=== PATIENT | female | born 1995 | race Caucasian/White ===

== ENCOUNTER 2018-06-06 20:22 | Emergency (ER) | payer SELFPAY ==
[2018-06-06 20:28] VITALS: BP 124/79; PULSE 89; RESP 18; TEMP 36.6; O2SAT 100
--- NOTE | 2018-06-06 21:04 | ED.SKABFB ---
HPI - Skin/Abscess/Foreign Bdy General Chief complaint: Skin/Abscess/Foreign Body Stated complaint: DOG BITE TO LEFT INDEX FINGER Time Seen by Provider: 06/06/18 20:35 Source: patient Mode of arrival: ambulatory Limitations: no limitations History of Present Illness HPI narrative: Patient is a 23-year-old female who presents with dog bite to her left index finger. She did dog bite 1 week ago. She has not had significant redness swelling or pus no decreased range in motion. She got concerned because she is not sure that her tetanus is up-to-date. She felt some pain in her jaw thought she might have tetanus. She no longer has pain in her jaw. complaint: lesion Onset (ago): week(s) (1) Severity: mild Related Data Allergies Allergy/AdvReac Type Severity Reaction Status Date / Time codeine Allergy Verified 06/06/18 20:28 neomycin Allergy Verified 06/06/18 20:41 diphenhydramine AdvReac Hallucinati Verified 06/06/18 20:28 [From Benadryl] ng Review of Systems Review of Systems GENERAL: Denies chills,fever HEENT: Denies throat pain RESPIRATORY: Denies dyspnea, cough, wheezing CARDIOVASCULAR: Denies chest pain, palpitations GASTROINTESTINAL: Denies nausea, vomiting MUSCULOSKELETAL: Denies extremity pain, injury SKIN: See HPI NEUROLOGIC: Denies weakness, dizziness, headache, numbness 8 point review of systems is negative except for those stated above and HPI [facility] Medical History Patient denies significant medical history (Acute) Social History Smoking Status: Never smoker Social History Smoking Status: Never smoker Exam Initial Vital Signs Initial Vital Signs: Vital Signs Temperature 97.8 F 06/06/18 20:28 Pulse Rate 89 06/06/18 20:28 Respiratory Rate 18 06/06/18 20:28 Blood Pressure 124/79 06/06/18 20:28 Pulse Oximetry 100 06/06/18 20:28 GENERAL: Well-appearing, well-nourished and in no acute distress. CARDIOVASCULAR: peripheral pulses in tact, cap refill <2 sec RESPIRATORY: No respiratory distress, speaks in full sentences without difficulty EXTREMITIES: Normal range of motion, no clubbing or edema. Neurovascularly intact. \ full range of motion at left index DIP and PIP NEUROLOGICAL: Cranial nerves II through XII grossly intact. Normal gait and speech. SKIN: Left index finger small puncture wound noted distally. It is scabbed over no fluctuation no redness shows no swelling or pain. Seems to be healing. Course Vital Signs - 8 hr 06/06/18 20:28 06/06/18 21:08 Temperature 97.8 F 98.1 F Pulse Rate 89 82 Respiratory Rate 18 18 Blood Pressure 124/79 120/75 Pulse Oximetry 100 100 MDM - Skin/Abscess/Foreign Bdy MDM Narrative Medical decision making narrative: At this time I do not believe patient's finger to be infected from dog bite. Was offered a tetanus shot in the emergency department however she said she would rather get it from the pharmacy. Discharge Plan Departure Patient Disposition: Home Clinical Impression: Dog bite Qualifiers: Encounter type: initial encounter Qualified Code(s): W54.0XXA - Bitten by dog, initial encounter Discharge Date/Time: 06/06/18 21:05 Interventions: ED Discharge Assessment Last Done: 06/06/18 21:08 Instructions: DI for Dog Bite Activity Restrictions/Additional Instructions: *You have been diagnosed with Dog bite *What to do: at this point dog bite does not appear infected on my would not start antibiotics at this time. Keep finger clean and dry apply Neosporin twice daily to help with healing GO TO PHARMACY TO GET TETANUS SHOT *Continue to take medications as directed *Follow up with your primary care provider in 2-3 days *Return to ER if you should have PERSISTENT WORSENING REDNESS FINGER INABILITY TO BEND OR STRAIGHTEN FINGER, FEVER OR any new, worsening or concerning symptoms
[2018-06-06 21:08] VITALS: BP 120/75; PULSE 82; RESP 18; TEMP 36.7; O2SAT 100
== END 2018-06-06 21:05 | disposition home or self-care (01) ==
LOC: ED 21:12
PROVIDERS: Emergency Provider Emergency Medicine
DX: S61.251A Open bite of left index finger without damage to nail, initial encounter (principal); W54.0XXA Bitten by dog, initial encounter
CPT/HCPCS: 99283

== ENCOUNTER 2018-06-22 15:51 | Emergency (ER) | payer SELFPAY ==
[2018-06-22 15:59] VITALS: BP 129/82; PULSE 104; RESP 14; TEMP 36.1; O2SAT 100; BMI 19.8
--- NOTE | 2018-06-22 16:08 | ED.NAVMDI ---
HPI - Nausea/Vomiting/Diarrhea <GUANACO Mallory - Last Filed: 06/22/18 21:51> General Chief complaint: Nausea/Vomiting/Diarrhea Stated complaint: nausea, possibly from drinking alcohol Time Seen by Provider: 06/22/18 16:08 Source: patient Mode of arrival: ambulatory Limitations: no limitations History of Present Illness HPI Narrative: Healthy 23-year-old female that is a nonsmoker here for complaint of having nausea over the past several weeks. She also reports having a symptoms of reflux such as occasional burning to her esophagus. She denies any abdominal pain at this time. She denies any urinary symptoms. No active vomiting. She does state that she has had some increased stress over the past month. She has decreased p.o. intake all though she is tolerating fluids. Last bowel movement was earlier today and was unremarkable. She denies any vaginal discharge or bleeding. She denies any dark stools or hematemesis. She denies any stressors or relievers of her symptoms. MD complaint: nausea Related Data Previous Rx's Medication Instructions Recorded ondansetron 4 mg PO BID-TID PRN #10 tab 06/22/18 Allergies Allergy/AdvReac Type Severity Reaction Status Date / Time codeine Allergy Verified 06/22/18 15:59 neomycin Allergy Verified 06/22/18 15:59 diphenhydramine AdvReac Hallucinati Verified 06/22/18 15:59 [From Benadryl] ng Review of Systems <GUANACO Mallory - Last Filed: 06/22/18 21:51> Constitutional Denies chills, Denies fever(s), Denies lethargy and Denies weakness Eyes Denies change in vision, Denies eye discharge, Denies irritation and Denies loss of vision ENT Ears, Nose, Mouth, and Throat: Denies change in voice, Denies neck pain and Denies sore throat Cardiovascular Denies chest pain, Denies irregular heart rhythm, Denies lightheadedness, Denies palpitations, Denies dyspnea, Denies dyspnea on exertion and Denies orthopnea Respiratory Denies cough, Denies dyspnea, Denies dyspnea on exertion and Denies wheezing Gastrointestinal Gastrointestinal: Reports dyspepsia and Reports nausea Musculoskeletal Denies neck pain Neurologic Denies loss of vision and Denies weakness Endocrine Denies palpitations Allergic/Immunologic Denies wheezing PFSH <GUANACO Mallory - Last Filed: 06/22/18 21:51> Medical History Patient denies significant medical history (Acute) Social History Smoking Status: Never smoker Social History Smoking Status: Never smoker Exam <GUANACO Mallory - Last Filed: 06/22/18 21:51> Initial Vital Signs Initial Vital Signs: Vital Signs Temperature 97.0 F L 06/22/18 15:59 Pulse Rate 104 H 06/22/18 15:59 Respiratory Rate 14 06/22/18 15:59 Blood Pressure 129/82 06/22/18 15:59 Pulse Oximetry 100 06/22/18 15:59 Const General: cooperative and well developed Nutritional Appearance: well nourished Orientation: alert, awake, oriented x3 and not confused HENMT Ears: hearing grossly normal bilaterally, external ears normal and TM's normal bilaterally Mouth: oral mucosae normal and moist mucous membranes Throat: posterior oropharynx normal Eyes Conjunctivae: conjunctivae normal Sclera: sclerae normal Pupils: PERRL EOM: EOM intact bilaterally Resp Effort & Inspection: normal respiratory effort, able to speak in complete sentences, no respiratory distress and no use of accessory muscles Auscultation: clear to auscultation bilaterally, no rales, no rhonchi and no wheezes Cardio Rate: regular rate Rhythm: regular rhythm Heart Sounds: no click, no gallops, no murmurs and no rubs Pulses: normal peripheral pulses Skin General: no rashes or lesions noted, No jaundice and No petechiae Neuro General: alert, oriented x3, gait normal and no focal motor deficits Speech: speech normal <Tasha Welch DO - Last Filed: 06/23/18 08:30> Initial Vital Signs Initial Vital Signs: Vital Signs Temperature 97.0 F L 06/22/18 15:59 Pulse Rate 104 H 06/22/18 15:59 Respiratory Rate 14 06/22/18 15:59 Blood Pressure 129/82 06/22/18 15:59 Pulse Oximetry 100 06/22/18 15:59 Course <GUANACO Mallory - Last Filed: 06/22/18 21:51> Orders Ordered: Discontinued Medications Al Hydrox/Mg Hydrox/Simethicone 20 ml/ Lidocaine HCl 15 ml 0 ml PO NOW ONE Stop: 06/22/18 16:39 Last Admin: 06/22/18 16:52 Dose: 35 ml Ondansetron HCl (Zofran Odt) 4 mg SL NOW ONE Stop: 06/22/18 16:39 Last Admin: 06/22/18 16:52 Dose: 4 mg Vital Signs - 8 hr 06/22/18 15:59 06/22/18 18:13 Temperature 97.0 F L Pulse Rate 104 H 84 Respiratory Rate 14 Blood Pressure 129/82 114/76 Pulse Oximetry 100 100 <Tasha Welch DO - Last Filed: 06/23/18 08:30> Orders Ordered: Discontinued Medications Al Hydrox/Mg Hydrox/Simethicone 20 ml/ Lidocaine HCl 15 ml 0 ml PO NOW ONE Stop: 06/22/18 16:39 Last Admin: 06/22/18 16:52 Dose: 35 ml Ondansetron HCl (Zofran Odt) 4 mg SL NOW ONE Stop: 06/22/18 16:39 Last Admin: 06/22/18 16:52 Dose: 4 mg Vital Signs - 8 hr 06/22/18 15:59 06/22/18 18:13 Temperature 97.0 F L Pulse Rate 104 H 84 Respiratory Rate 14 Blood Pressure 129/82 114/76 Pulse Oximetry 100 100 MDM - Nausea/Vomiting/Diarrhea <GUANACO Mallory - Last Filed: 06/22/18 21:51> Lab Data Point of Care Testing Test Results Negative Urine Dip Bedside Urine Glucose Negative Bedside Urine Bilirubin - Negative Bedside Urine Ketone +/- 5 Urine Specific [place] 1.025 Bedside Urine Occult Blood - Negative Bedside Urine pH 6.0 Bedside Urine Protein - Negative Bedside Urine Urobilinogen - Negative Bedside Urine Nitrite - Negative Bedside Urine Leukocytes - Negative Esterase MDM Narrative Medical decision making narrative: She was given Zofran and GI cocktail emergency room which helped her to feel better. Suspect GERD. Will have her try [id number] Nexium to see if it helps with her symptoms. She is prescribed a small amount of Zofran to help with any nausea. She is encouraged to establish primary care and follow up with primary care. For any worsening symptoms return to the emergency room. <Tasha Welch DO - Last Filed: 06/23/18 08:30> Lab Data Point of Care Testing Test Results Negative Urine Dip Bedside Urine Glucose Negative Bedside Urine Bilirubin - Negative Bedside Urine Ketone +/- 5 Urine Specific [place] 1.025 Bedside Urine Occult Blood - Negative Bedside Urine pH 6.0 Bedside Urine Protein - Negative Bedside Urine Urobilinogen - Negative Bedside Urine Nitrite - Negative Bedside Urine Leukocytes - Negative Esterase Discharge Plan Departure Patient Disposition: Home Clinical Impression: Acid reflux disease Qualifiers: Esophagitis presence: esophagitis presence not specified Qualified Code(s): K21.9 - Gastro-esophageal reflux disease without esophagitis Discharge Date/Time: 06/22/18 18:14 Interventions: ED Discharge Assessment Last Done: 06/22/18 18:13 Instructions: DI for Gastroesophageal Reflux Disease (GERD) Activity Restrictions/Additional Instructions: Signs and symptoms presents as a reflux disease. Use [id number] Nexium per instructions to see if it helps with her symptoms. Her prescribed a small amount of Zofran to help with nausea use as directed. Follow up with primary care provider. For any worsening symptoms return to the emergency room. Minimize spicy foods Prescriptions: New ondansetron 4 mg tablet,disintegrating 4 mg PO BID-TID PRN (Reason: nausea and vomiting) Qty: 10 RF: 0 Referrals: [facility] [Provider Group] <Tasha Welch DO - Last Filed: 06/23/18 08:30> Cosign ED Attending Maddy Attestation: I was immediately available in the department for consultation. Documentation has been reviewed. I agree with assessment and plan.
[2018-06-22] MEDS: ONDANSETRON 4 MG ODT SL (16:52)
[2018-06-22] MEDS: MAG HYDROX/ALUMINUM/SIMETH SUS 20 ML, LIDOCAINE VISCOUS 2% 15 ML PO (16:52)
[2018-06-22 18:13] VITALS: BP 114/76; PULSE 84; O2SAT 100
== END 2018-06-22 18:14 | disposition home or self-care (01) ==
PROVIDERS: Emergency Provider Nurse Practitioner Family
DX: K21.9 Gastro-esophageal reflux disease without esophagitis (principal)
CPT/HCPCS: 81003; 81025; 99282; 99283